=== PATIENT | female | born 1995 | race Caucasian/White ===

== ENCOUNTER 2017-06-16 00:55 | Emergency (ER) | payer MEDICAID, MEDICARE ==
[2017-06-16] MEDS ORDERED: PHENAZOPYRIDINE HCL 200 MG TABLET PO ONE (01:34)
[2017-06-16] MEDS ORDERED: ONDANSETRON 4 MG TAB.RAPDIS PO ONE (01:38)
--- NOTE | 2017-06-16 01:40 | ER Document Report ---
ED General - General Chief Complaint: Abdominal Pain Stated Complaint: LOWER ABDOMINAL PAIN Time Seen by Provider: 06/16/17 01:28 Notes: Patient is a 21-year-old female presents with complaint of burning sensation whenever she urinates and she has intermittent sharp pains into her suprapubic region. No abnormal vaginal discharge or bleeding. No fevers. Symptoms have been ongoing for approximately 8 hours. Some nausea. No vomiting. No diarrhea. No other complaints at this time. 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 Last chemotherapy was in the fall. TRAVEL OUTSIDE OF THE [place] IN LAST 30 DAYS: No - Related Data Allergies/Adverse Reactions: No Known Allergies Allergy (Unverified 06/16/17 00:59) Past Medical History - Social History Smoking Status: Unknown if Ever Smoked Chew tobacco use (# tins/day): No Frequency of alcohol use: None Drug Abuse: None Family History: Reviewed & Not Pertinent Patient has suicidal ideation: No Patient has homicidal ideation: No Renal/ Medical History: Denies: Hx Peritoneal Dialysis Review of Systems - Review of Systems Notes: My Normal Review Basic REVIEW OF SYSTEMS: CONSTITUTIONAL : Denies fever, chills, or sweats. Denies recent illness. RESPIRATORY: Denies cough, cold, or chest congestion. Denies shortness of breath, difficulty breathing, or wheezing. GASTROINTESTINAL: Suprapubic abdominal pain. Nausea. No vomiting. GENITOURINARY: Dysuria FEMALE GENITOURINARY: Denies vaginal bleeding, abnormal or irregular periods. MUSCULOSKELETAL: Denies neck or back pain or joint pain or swelling. SKIN: Denies rash or skin lesions. NEUROLOGICAL: Denies altered mental status or loss of consciousness. ALL OTHER SYSTEMS REVIEWED AND NEGATIVE. Physical Exam - Vital signs Vitals: Temp Pulse Resp BP Pulse Ox 98.6 F 71 16 123/78 96 06/16/17 00:59 06/16/17 00:59 06/16/17 00:59 06/16/17 00:59 06/16/17 00:59 - Notes Notes: General Appearance: Well nourished, alert, cooperative, no acute distress, no obvious discomfort. well appearing. Vitals: reviewed, See vital signs table. Eyes: PERRL, EOMI, Conjuctiva clear Lungs: No wheezing, No rales, No rhonci, No accessory muscle use, good air exchange bilaterally. Heart: Normal rate, Regular rythm, No murmur, no rub Abdomen: Normal BS, soft, No rigidity, mild suprapubic abdominal tenderness palpation. Remainder of abdomen is nontender. Extremities: strength 5/5 in all extremities, good pulses in all extremities, no swelling or tenderness in the extremities, no edema. Skin: warm, dry, appropriate color, no rash Neuro: speech clear, oriented x 3, normal affect, responds appropriately to questions. Course - Re-evaluation Re-evalutation: 06/16/17 04:57 Patient symptoms and urinalysis are consistent with that of UTI with bladder spasm. Will place on Pyridium as well as antibiotics. I encouraged her return to ER if she has fevers, vomiting, back pain, or she feels that she is worsening. Patient agrees with plan will be discharged home. Dictation of this chart was performed using voice recognition software; therefore, there may be some unintended grammatical errors. - Vital Signs Vital signs: Temp Pulse Resp BP Pulse Ox 97.8 F 79 16 125/81 97 06/16/17 02:47 06/16/17 02:47 06/16/17 02:47 06/16/17 02:47 06/16/17 02:47 - Laboratory Laboratory results interpreted by me: 06/16/17 01:40 Urine Protein 30 H Ur Leukocyte Esterase LARGE H Discharge - Discharge Clinical Impression: UTI (urinary tract infection) Qualifiers: Urinary tract infection type: site unspecified Hematuria presence: without hematuria Qualified Code(s): N39.0 - Urinary tract infection, site not specified Condition: Good Disposition: HOME, SELF-CARE Additional Instructions: URINARY TRACT INFECTION: Your evaluation indicates that you have a urinary tract infection. This is due to germs growing in the bladder. This is a common problem. This infection usually responds quickly to antibiotics. Your antibiotic should be taken exactly as prescribed. Drink plenty of fluids -- three to four quarts a day. Occasionally, a bladder anesthetic will be prescribed to help stop the feeling of urgency until the antibiotic has a chance to clear the infection. This may cause your urine to be dark orange. Certain urine infections require a culture. If the doctor obtained a culture, the results will be back in two days. You should call to see if a change in treatment is needed. A repeat urinalysis after you finish treatment is often recommended. The physician will let you know if further testing is required. Call the doctor if you develop fever, chills, flank pain, inability to urinate, or blood in the urine. ANTIBIOTIC THERAPY: You have been given an antibiotic prescription. It's important that you take all the medication, unless instructed otherwise by your physician. Failure to complete the entire course can result in relapse of your condition. Common side effects of antibiotics include nausea, intestinal cramping, or diarrhea. Women may develop vaginal yeast infections, and babies can get yeast (thrush) in the mouth following the use of antibiotics. Contact your physician if you develop significant side effects from this medication. Allergy to this antibiotic can result in hives, wheezing, faintness, or itching. If symptoms of allergy occur, stop the medication and call the doctor. CEPHALEXIN: The antibiotic you've been prescribed is a member of the cephalosporin class. This type of antibiotic covers a wide variety of infections, including those of the skin, lungs, and urinary tract. It's useful for staph infections. This antibiotic is slightly similar to the penicillin family. In rare cases , a person who is allergic to penicillin will also be allergic to this medication. If you have had a severe allergic reaction to penicillin, and have not taken this antibiotic since that time, notify your doctor. Antibiotics which cover many germs ("broad spectrum" antibiotics) are more likely to cause diarrhea or "yeast" infections. Women prone to vaginal yeast problems may suffer an attack after taking this antibiotic. In infants, oral thrush (white spots "stuck" on the cheek) or yeast diaper rash may result. See your doctor if these problems occur. Call at once if you develop itching, hives , shortness of breath, or lightheadedness. URINARY ANESTHETIC AGENT: You have been given a medication (Pyridium) for urinary tract discomfort. This medicine numbs the lining of the bladder and urethra, resulting in less pain, burning, and urgency. You may take it as needed, according to instructions. When the symptoms resolve, you can stop this medication (be sure to continue any other medications the doctor has given you). This medicine turns the urine a dark orange. It may stain underwear. Occasionally, it can cause nausea. Return for evaluation if there are any unexpected effects, such as itching, hives, or shortness of breath. FOLLOW-UP CARE: If you have been referred to a physician for follow-up care, call the physician s office for an appointment as you were instructed or within the next two days. If you experience worsening or a significant change in your symptoms, notify the physician immediately or return to the Emergency Department at any time for re-evaluation. Please return to the ER if you have worsneing pain, fevers, vomiting, or feel that you are worsening. Prescriptions: Cephalexin Monohydrate [Keflex 500 mg Capsule] 500 mg PO BID 5 Days #10 capsule Phenazopyridine HCl [Pyridium 100 Mg Tablet] 100 mg PO BID #8 tablet Forms: Return to Work Referrals: OMA KNIGHT MD [Primary Care Provider] - Follow up in 3-5 days
[2017-06-16 02:01] LABS: APPEARANCE,URINE CLOUDY; BILIRUBIN,URINE NEGATIVE (NEGATIVE); CALCIUM OXALATE CRYSTALS,URINE RARE /HPF; COLOR,URINE YELLOW; GLUCOSE, URINE NEGATIVE (NEGATIVE); KETONES,URINE NEGATIVE (NEGATIVE); LEUKOCYTE ESTERASE,URINE LARGE (NEGATIVE); NITRITE,URINE NEGATIVE (NEGATIVE); PROTEIN,URINE 30 mg/dL (NEGATIVE); UROBILINOGEN,URINE NEGATIVE mg/dL (<2.0)
[2017-06-16] MEDS ORDERED: CEPHALEXIN 500 MG CAPSULE PO ONE (02:24)
[2017-06-16 02:52] VITALS: BP 125/81
== END 2017-06-16 02:53 | disposition home or self-care (01) ==
LOC: ER 00:55
DX: N39.0 Urinary tract infection, site not specified (principal); Z85.72 Personal history of non-Hodgkin lymphomas
CPT/HCPCS: 99284; 81025; 81001; S0119; J3490